=== PATIENT | male | born 1970 | race Caucasian/White ===

== ENCOUNTER 2021-12-22 12:40 | Emergency (ER) | payer BC ==
[2021-12-22 13:07] LABS: HEMOGLOBIN 15.1 gm/dl (14.0-17.5); RED BLOOD COUNT 5.02 M/UL (4.20-5.50); WHITE BLOOD COUNT 6.1 K/UL (4.5-11.0)
[2021-12-22 13:28] LABS: BUN/CREATININE RATIO 14 (0-10)
[2021-12-22] MEDS ORDERED: ATIVAN0.5 MG PO (14:36)
== END 2021-12-22 14:48 | disposition home or self-care (01) ==
LOC: EDBD 12:40 → ER1 12:40
PROVIDERS: Emergency Medicine
DX: F41.0 Panic disorder [episodic paroxysmal anxiety] (principal); F17.200 Nicotine dependence, unspecified, uncomplicated
CPT/HCPCS: 71045; 80048; 84439; 84443; 84484; 85025; 93005; 96374; 99285; J2060